=== PATIENT | female | born 1945 | race Caucasian/White ===

== ENCOUNTER 2020-03-30 21:22 | Emergency (ER) | payer MEDICARE, OTHER ==
[2020-03-30 22:06] LABS: #Basophils 0.1 thou/uL (0.0-0.2); #Eosinphils 0.2 thou/uL (0.0-0.7); #Lymphocytes 1.5 thou/uL (1.20-3.40); #Monocytes 0.8 thou/uL (0.11-0.59); #Neutrophils 12.8 thou/uL (1.40-6.50); %Basophils 0.9 % (0.0-1.0); %Eosinophils 1.1 % (0.0-10.0); %Lymphocytes 9.5 % (21.0-51.0); %Neutrophils 83.5 % (42.0-75.0); Hemoglobin 12.2 g/dL (12.0-16.0); Mean Corpuscular HGB CONC 31.8 g/dL (32.0-36.0); Mean Corpuscular Hemoglobin 29.1 pg (27.0-31.0); Mean Corpuscular Volume 91.5 fL (78.0-98.0); Mean Platelet Volume 7.7 fL (7.4-10.4); Platelet Count 355 thou/uL (130-400); RBC Distribution Width 11.4 % (11.5-14.5); White Blood Cell (WBC) Count 15.4 thou/uL (4.8-10.8)
[2020-03-30 22:08] LABS: INR-International Normal Ratio 1.4; Prothrombin Time 17.4 sec (12.0-14.7)
[2020-03-30 22:09] LABS: PTT 44.1 sec (22.9-36.1)
[2020-03-30 22:20] LABS: ALT (SGPT) 36 U/L (8-55); AST (SGOT) 36 U/L (5-34); Albumin 4.3 g/dL (3.4-4.8); Alkaline Phosphatase 118 U/L (40-110); Anion Gap 16 mmol/L (10-20); BUN (Urea Nitrogen) 13 mg/dL (9.8-20.1); Bilirubin, Total 0.4 mg/dL (0.2-1.2); Calc. Creatinine Clearance 0 mL/min (70-130); Calcium 10.5 mg/dL (7.8-10.44); Carbon Dioxide 27 mmol/L (23-31); Chloride 102 mmol/L (98-107); Estimated GFR-MDRD 68; Globulin 2.7 g/dL (2.4-3.5); Glucose 146 mg/dL (83-110); Potassium 4.2 mmol/L (3.5-5.1); Sodium 141 mmol/L (136-145)
[2020-03-30] MEDS ORDERED: Pantoprazole 40 MG VIAL ONE (22:37)
--- NOTE | 2020-03-31 07:39 | RAD ---
PORTABLE CHEST: Date: 03/30/2020 An AP portable film at 2200 hours shows a normal sized heart and clear lungs. Some calcification is s een in the aorta. There is no vascular congestion, edema, or pleural effusion. There may be a small c alcified granuloma in the right base. IMPRESSION: No acute thoracic findings. POS: HOME
== END 2020-03-30 22:57 | disposition short-term general hospital (02) ==
LOC: BURERS 21:22
DX: K92.2 Gastrointestinal hemorrhage, unspecified (principal); I49.9 Cardiac arrhythmia, unspecified; I48.91 Unspecified atrial fibrillation; I10 Essential (primary) hypertension; J45.909 Unspecified asthma, uncomplicated; Z87.891 Personal history of nicotine dependence; Z79.899 Other long term (current) drug therapy; Z79.82 Long term (current) use of aspirin; Z79.51 Long term (current) use of inhaled steroids; Z79.01 Long term (current) use of anticoagulants; Z86.711 Personal history of pulmonary embolism
CPT/HCPCS: 71045; 80053; 83880; 84484; 85025; 85610; 85730; 86850; 86900; 86901; 93005; 94760; 96374; C9113

== ENCOUNTER 2022-04-11 23:17 | Emergency (ER) | payer MEDICARE, OTHER ==
[2022-04-11] MEDS ORDERED: Iopamidol 370 76% 100 ML VIAL FS ONE (23:18)
[2022-04-11] MEDS ORDERED: Fentanyl 100 MCG/2 ML VIAL ONE (23:47)
[2022-04-11] MEDS ORDERED: Ondansetron PF 4 MG/2 ML Vial ONE (23:47)
[2022-04-11 23:52] LABS: #Basophils 0.1 thou/uL (0.0-0.2); #Eosinphils 0.1 thou/uL (0.0-0.7); #Lymphocytes 1.2 thou/uL (1.20-3.40); #Monocytes 0.5 thou/uL (0.11-0.59); #Neutrophils 8.3 thou/uL (1.40-6.50); %Eosinophils 0.7 % (0.0-10.0); %Monocytes 5.2 % (0.0-10.0); %Neutrophils 81.2 % (42.0-75.0); Hemoglobin 14.1 g/dL (12.0-16.0); Mean Corpuscular HGB CONC 33.9 g/dL (32.0-36.0); Mean Corpuscular Volume 94.1 fL (78.0-98.0); Mean Platelet Volume 7.3 fL (7.4-10.4); Platelet Count 226 thou/uL (130-400); RBC Distribution Width 11.7 % (11.5-14.5); Red Blood Cell (RBC) Count 4.41 mill/uL (4.20-5.40); White Blood Cell (WBC) Count 10.3 thou/uL (4.8-10.8)
[2022-04-12 00:06] LABS: Anion Gap 18 mmol/L (10-20); BUN (Urea Nitrogen) 13 mg/dL (9.8-20.1); Calc. Creatinine Clearance 0 mL/min (70-130); Carbon Dioxide 25 mmol/L (23-31); Chloride 99 mmol/L (98-107); Potassium 3.6 mmol/L (3.5-5.1); Sodium 138 mmol/L (136-145)
[2022-04-12 00:07] LABS: ALT (SGPT) 36 U/L (8-55); AST (SGOT) 20 U/L (5-34); Albumin 4.5 g/dL (3.4-4.8); Alkaline Phosphatase 142 U/L (40-110); Bilirubin, Total 0.6 mg/dL (0.2-1.2); Calcium 9.8 mg/dL (7.8-10.44); Globulin 2.8 g/dL (2.4-3.5); Glucose 181 mg/dL (83-110); Lipase 11 U/L (8-78); Protein, Total 7.3 g/dL (5.8-8.1)
[2022-04-12] MEDS ORDERED: Fentanyl 100 MCG/2 ML VIAL ONE ×2 (00:56→03:07)
[2022-04-12] MEDS ORDERED: cefTRIAXone\\ROCEPHIN 1 GM VIAL ONE (03:06)
== END 2022-04-12 04:20 | disposition short-term general hospital (02) ==
LOC: BURERS 23:17
DX: K80.00 Calculus of gallbladder with acute cholecystitis without obstruction (principal); I48.91 Unspecified atrial fibrillation; I10 Essential (primary) hypertension; J45.909 Unspecified asthma, uncomplicated; E11.9 Type 2 diabetes mellitus without complications; Z87.891 Personal history of nicotine dependence; Z85.048 Personal history of other malignant neoplasm of rectum, rectosigmoid junction, and anus
CPT/HCPCS: 74177; 80053; 83605; 83690; 85025; 93005; 96374; 96375; 96376; J0696; J2405; J3010; Q9967

== ENCOUNTER 2023-05-01 09:38 | Outpatient (CLI) | payer MEDICARE, OTHER | END 2023-05-01 09:39 | disposition home or self-care (01) | LOC: BURRAD 09:38 | PROVIDERS: ATTEND Neurological Surgery | DX: M48.062 Spinal stenosis, lumbar region with neurogenic claudication (principal); M47.816 Spondylosis without myelopathy or radiculopathy, lumbar region; Z98.890 Other specified postprocedural states | CPT/HCPCS: 72100 ==